=== PATIENT | female | born 1985 | race Caucasian/White ===

== ENCOUNTER → 2025-08-13 | Outpatient (REF) | payer BC ==
[~2025-08-13] MED LIST: EXTR500C4 PO; MOTR200T44 PO
== END ==
LOC: M LAB REF 16:55
PROVIDERS: ATTEND Physician Assistant Medical
DX: B34.9 Viral infection, unspecified (principal)

== ENCOUNTER → 2025-08-14 | Outpatient (REF) | payer BC ==
[2025-08-14 18:33] LABS: HIV 1&2 SCREEN NEGATIVE (NEGATIVE)
[2025-08-14 18:39] LABS: HEPATITIS C VIRUS ABY INDEX < 0.02 INDEX (<0.8)
[2025-08-14 19:56] LABS: Trichomonas vaginalis (AMP) NOT DETECTED (NEGATIVE)
[2025-08-14 20:19] LABS: GC DNA AMPLIFICATION NEGATIVE (NEGATIVE)
== END ==
LOC: M LAB REF 17:09
DX: Z72.51 High risk heterosexual behavior (principal)